=== PATIENT | male | born 2000 | race Caucasian/White ===

== ENCOUNTER 2020-05-30 20:37 | Emergency (ER) | payer SELFPAY ==
[~2020-05-30] VITALS: Ht 170.2 cm; Wt 77.3 kg
[2020-05-30] MEDS ORDERED: SODIUM CHLORIDE 0.9% 250 ML IRRIG SOLUTION BOTTLE IRRIG ONE (22:45)
[2020-05-30] MEDS ORDERED: PERTUSS(ACELL),DIPH,TET VAC/PF 0.5 ML VIAL IM ONE (22:45)
[2020-05-30] MEDS ORDERED: HYDROCODONE/ACETAMINOPHEN 5-325 MG TABLET PO ONE (22:45)
[2020-05-30] MEDS ORDERED: AMOX TR/POT CLAV 875 MG/125 MG TABLET PO ONE (23:15)
[2020-05-30 23:57] VITALS: BP 118/85
== END 2020-05-31 00:07 | disposition home or self-care (01) ==
LOC: EMS 20:37
DX: S61.451A Open bite of right hand, initial encounter (principal); F17.210 Nicotine dependence, cigarettes, uncomplicated; F12.90 Cannabis use, unspecified, uncomplicated; W54.0XXA Bitten by dog, initial encounter; Y93.89 Activity, other specified; Y92.89 Other specified places as the place of occurrence of the external cause; Y99.8 Other external cause status
CPT/HCPCS: 90471; 90715; 99406